=== PATIENT | female | born 1935 | race Caucasian/White ===

== ENCOUNTER → 2020-06-11 17:03 | Outpatient (CLI) | payer MEDICARE, SELFPAY ==
[2020-06-11 13:39] VITALS: BMI 27.1
== END ==
PROVIDERS: PCP Family Medicine; Referring Provider Obstetrics & Gynecology; Visit Provider Obstetrics & Gynecology
DX: N89.8 Other specified noninflammatory disorders of vagina (principal)
CPT/HCPCS: 87070; 87205

== ENCOUNTER → 2020-06-13 16:41 | Outpatient (CLI) | payer MEDICARE, SELFPAY ==
[2020-06-11 13:39] VITALS: BMI 27.1
[2020-06-19 13:10] LABS: HPV Reflexed? NOT INDICATED
== END ==
PROVIDERS: PCP Family Medicine; Referring Provider Obstetrics & Gynecology; Visit Provider Obstetrics & Gynecology
DX: Z12.4 Encounter for screening for malignant neoplasm of cervix (principal)
CPT/HCPCS: 88175; G0145

== ENCOUNTER → 2021-01-27 | Outpatient (CLI) | payer MEDICARE, SELFPAY ==
[2021-01-27 13:58] VITALS: BMI 27.8
== END | disposition home or self-care (01) ==
LOC: LABSPEC 16:58
PROVIDERS: PCP Family Medicine; Referring Provider Obstetrics & Gynecology; Visit Provider Obstetrics & Gynecology
DX: R35.0 Frequency of micturition (principal); N89.8 Other specified noninflammatory disorders of vagina
CPT/HCPCS: 87070; 87086; 87088; 87205

== ENCOUNTER → 2022-08-26 | Outpatient (CLI) | payer MEDICARE, SELFPAY | END | disposition home or self-care (01) | PROVIDERS: PCP Family Medicine; Visit Provider Registered Nurse | DX: N39.0 Urinary tract infection, site not specified (principal) | CPT/HCPCS: 87086; 87088 ==

== ENCOUNTER → 2022-12-22 | Outpatient (CLI) | payer MEDICARE, SELFPAY ==
--- NOTE | 2022-12-22 14:44 | CT_ITS ---
STUDY: CT Abdomen And Pelvis W/ Contrast Injection 12/22/2022 4:38 PM REASON FOR EXAM: Female, 87 years old. Left upper quadrant pain and loose stools in the morning since October. Surgeries: Cholecystectomy, Hysterectom pain LUQ PAIN Individualized dose optimization techniques were used for this CT. COMPARISON: 02.24.17. TECHNIQUE: CT Abdomen And Pelvis W/ Contrast Injection Oral and amp; IV Gastrografin and amp; 100mL Isovue-300 FINDINGS: There are atherosclerotic calcifications of visualized coronary arteries. The visualized portions of the heart are within normal limits. Normal liver. There are surgical clips in the gallbladder fossa consistent with a prior cholecystectomy. Normal spleen. Normal pancreas. There is dilation of the common bile duct. A common bile duct stone is not seen. The CBD diameter is 8 mm. Normal bilateral adrenal glands. There are hypodensities in the right kidney. These are consistent for cysts. No follow up required. There are hypodensities in the left kidney. These are consistent for cysts. No follow up required. Mild left hydronephroureter. An obstructing calcified stone is not identified. This would suggest passage of a stone or infectious process of the kidney. Normal visualized stomach. Normal small intestine. There are multiple colonic diverticula consistent with diverticulosis. The appendix is visualized and appears normal. There are calcifications of the abdominal aorta. This is consistent for atherosclerotic disease. There is NO abdominal aortic aneurysm. Vascular workup can be obtained based on clinical correlation. Normal inferior vena cava. Subcentimeter mesenteric lymph nodes. Normal urinary bladder. There is absence of the uterus consistent with a prior hysterectomy. Lumbar scoliosis. There is an umbilical hernia containing fat. There are diffuse degenerative changes of the visualized lumbar spine. CT/Abdomen/Pelvis WITH Contrast IMPRESSION: (NOT LISTED IN ORDER OF SIGNIFICANCE) Mild left hydronephroureter. An obstructing calcified stone is not identified. This would suggest passage of a stone or infectious process of the kidney. Other findings as above. Electronically Signed: Jonathan Finley MD at 16:43 EDT ,
[2022-12-22 16:31] LABS: CREATININE FINGERSTICK < 0.9 mg/dL (0.55-1.02); EGFR FINGERSTICK > 60.0000 mL/min (>60)
== END | disposition home or self-care (01) ==
PROVIDERS: PCP Family Medicine; Visit Provider Family Medicine
DX: R10.12 Left upper quadrant pain (principal)
CPT/HCPCS: 74177; Q9967

== ENCOUNTER → 2023-01-01 | Outpatient (CLI) | payer MEDICARE, SELFPAY ==
--- NOTE | 2023-01-01 12:33 | US_ITS ---
INDICATION: HYDROURETER LEFT EXAMINATION: US Kidney(s) complete (eg, kidneys and bladder) TECHNIQUE: Moe scale and color doppler images were obtained of the kidneys. COMPARISON: CT 12/22/2022. FINDINGS: RIGHT KIDNEY: Measures 9.6 cm in length.. There is mild hydronephrosis. No shadowing calculus, focal solid mass or perinephric collection is demonstrated. There is 1 simple anechoic 2 cm cyst. LEFT KIDNEY: Measures 9.3 cm in length.. There is no hydronephrosis. No shadowing calculus, focal solid mass or perinephric collection is demonstrated. There are 2 simple anechoic cysts measuring 3.2 and 1.3 cm, respectively. URINARY BLADDER: No acute abnormality. US/Kidney and Bladder IMPRESSION: Mild right hydronephrosis with no obstructing stone seen. This could be secondary to an occult or recently passed stone versus occult mass. No left sided hydronephrosis. (Upon review of recent CT, the hydronephrosis is on the right, not the left.) Electronically Signed: Lizandro Leong MD at 17:57 EDT ,
== END | disposition home or self-care (01) ==
PROVIDERS: PCP Family Medicine; Referring Provider Family Medicine; Visit Provider Family Medicine
DX: N13.4 Hydroureter (principal)
CPT/HCPCS: 76770

== ENCOUNTER 2023-04-27 07:15 | Day surgery (SDC) | payer MEDICARE, SELFPAY ==
[2023-04-27] VITALS (7 sets, daily range): BP systolic 99–136; BP diastolic 46–69; PULSE 64–79; RESP 14–16; TEMP 36.1–36.6; O2SAT 96–100; BMI 26.9
--- NOTE | 2023-04-27 07:43 | HP.PCM_ITS ---
History and Physical Date of Admission: 04/27/23 Allergies metronidazole [From Flagyl] Adverse Reaction (Unknown, Verified 04/19/23 14:02) dizziness Medications aspirin 81 mg tablet,delayed release (Adult Aspirin Regimen) 81 mg PO DAILY 01/27/21 [History Confirmed 04/19/23] atorvastatin 40 mg tablet (Lipitor) 40 mg PO DAILY 01/27/21 [History Confirmed 04/19/23] cholecalciferol (vitamin D3) 25 mcg (1,000 unit) capsule 25 mcg PO DAILY 01/27/21 [History Confirmed 04/19/23] mecobalamin (vitamin B12) 5,000 mcg disintegrating tablet mcg PO 01/27/21 [History Confirmed 04/19/23] melatonin 3 mg capsule 3 mg PO HS PRN 01/27/21 [History Confirmed 04/19/23] omeprazole 20 mg capsule,delayed release 20 mg PO BID 01/27/21 [History Confirmed 04/19/23] buspirone 10 mg tablet 7.5 mg PO BID 04/02/23 [History Confirmed 04/19/23] PFS Medical History (Updated 04/19/23 @ 15:36 by Pretty GARCIA PADeborahC) Anxiety Arthritis Fibrocystic breast Hyperlipidemia Surgical History Encounter for cholecystectomy H/O hysterectomy with oophorectomy Family History Mother Heart diseaseFather Myocardial infarction Social History Smoking Status: Never smoker alcohol intake: never substance use type: does not use caffeine: Yes what type of physical activity do you participate in: walking seatbelt use: always do you feel safe at home: Yes additional social history: Horace- both are retired HPI HPI Surgical H&P: Yes HPI: Patient is an 87 y/o F I am seeing for history of GERD and abdominal pain occurring in October. Patient notes she has been taking omeprazole 20 mg BID for over 20 years. Patient notes she has never had an upper to scope be evaluated for reflux disease. Patient notes in October she was extremely sick from the Norovirus. She notes since that time she has intermittent LLQ pain and she notes abdominal cramping and epigastric discomfort. She notes she also has to take the occasional TUMs for reflux disease approximately 2-3 times per week. Patient is also scheduled for a colonoscopy on 04/[address] Welch. Patient would like to have an upper scope completed at the same time. Patient's previous history per Dr. Welch: 87-year-old female being referred by Dr. Timo Barreto for surgical consultation regarding left lower quadrant abdominal pain. She does have chronic GERD symptoms as well. A written copy of my surgical consult recommendations will be returned to him. Laboratory of March 16, 2023 demonstrates a white blood cell count of 4.66 with a hemoglobin 12.3 hematocrit of 39.2 and a platelet count of 205,000. Glucose was 129 and BUN 12 with a creatinine of 0.93. Liver function tests were normal. Stool for analysis was remarkable Nacho virus Previously on December 22, 2022 because of left upper quadrant pain and loose stools the patient had a CT abdomen and pelvis with contrast. Report demonstrates evidence of previous cholecystectomy. Spleen pancreas normal. Common bile duct 8 mm but no stone identified. Hypodensities in the right kidney consistent with cysts. Mild right hydronephrosis and hydroureter. It is of note that the CT dictation suggests left hydroureter but this actually is a mixed type and misprint which was identified on the follow-up abdominal ultrasound as noted below an obstructing calcified stone not identified. Possible passage of a stone or infectious process of the kidney. Multiple colonic diverticulosis. Normal appendix. Atherosclerotic disease of the abdominal aorta without aneurysm. Small umbilical hernia. Subsequently on January 01, 2023 because of the left hydroureter the patient had an ultrasound. This showed suggested mild right hydronephrosis with no obstructing stone. No left-sided hydronephrosis at that time. Reviewing patient medications along her other medicines she has been on buspirone since July 27, 2022. Also on omeprazole 20 mg twice daily. Of note is that she is on magnesium oxide daily. Urinalysis of December 25, 2022 appears unremarkable. It appears that her repeat urinalysis on March 09, 2023 was also unremarkable. Patient describes the discomfort as a left flank Ketur type pain feeling warm and then uncomfortable ROS General General: No weight change, appetite, fatigue, colon cancer, breast cancer or weakness HEENT HEENT: No difficulty swallowing, eye injury, eye surgery, swollen glands or hoarseness Endo Endocrine: No thyroid disease, diabetes mellitus, thyroid cancer, Hair loss, heat intolerance or cold intolerance Skin Skin: No rash or changing moles Breast Breast: No left breast lump, right breast lump, nipple discharge, breast pain, abnormal mammogram, abnormal US or breast enlargement Musc Musculoskeletal: Yes arthritis; No back problems, rheumatoid arthritis, gout or joint pain Cardio Cardiovascular: No murmur, pacemaker, heart disease, atrial fibrillation, high blood pressure, heart attack, heart stent, palpitations, shortness of breat with exertion or chest pain Psych Psychiatric: Yes anxiety; No depression or hearing voices Resp Respiratory: No shortness of breath, No sleep apnea, No cough, No COPD, No asthma, No emphysema and No wheezing Gastro Gastrointestinal: No abdominal pain, No nausea or vomiting, No diarrhea, No constipation, No blood in stool, Yes acid reflux, Yes hemorrhoids, No ulcers, No gallbladder problem and No black,tarry stools Aleksey Hematologic: Yes blood thinners, No blood disorders, No bleeding, No anemia and No blood clots Neuro Neurologic: No system reviewed and no additional complaints, except as documented, No as per HPI, No abnormal gait, No abnormal hearing, No abnormal movements, No abnormal speech, No behavioral changes, No burning sensations, No confusion, No convulsions, No disequilibrium, No dizziness, No localized weakness, No frequent falls, No headache(s), No lack of coordination, No loss of vision, No memory loss, No numbness, No other visual disturbances, No radicular pain, No restless legs, No sensory deficit, No syncope, No tingling, No tremor(s), No weakness and No other Exam Const General: cooperative, healthy appearing, comfortable and no acute distress [facility] Head: normal to inspection Eyes General: appearance normal, both eyes and all related structures Neck Neck: normal visual inspection Neck mass: No Resp Effort & Inspection: normal respiratory effort Auscultation: clear to auscultation bilaterally Cardio Rate: regular rate Rhythm: regular rhythm GI Inspection: normal to inspection Palpation: soft Auscultation: normal bowel sounds Musc Cervical Spine: normal cervical lordosis Skin General: no rashes or lesions noted Neuro General: no focal motor deficits and CN's II-XI intact bilaterally Extrem General: normal to inspection Psych Appearance: grossly normal Affect: normal affect Assessment and Plan Assessment and Plan (1) Epigastric pain: Status: Acute Plan: Dr. Welch will plan to perform a combined EGD and colonoscopy with possible biopsies to further assess the patient's abdominal pain. Patient has also been on chronic PPI's, >20 years, without any previous upper scope. Procedure details, risks and benefits have been explained. Patient and her spouse have had the opportunity to ask and have questions answered. Patient verbally understands and agrees with the plan. (2) Left flank pain: Status: Acute Patient long-term PPIs complaining of epigastric pain and left flank pain. Plan to proceed with a combined esophagogastroduodenoscopy possible biopsy and colonoscopy with possible biopsy or polypectomy as indicated. We will proceed as noted. Noah Welch M.D., F.A.C.S.
[2023-04-27] MEDS: Lactated Ringers 1,000 ML 15 ML IV (07:46)
--- NOTE | 2023-04-27 08:15 | IMM_PTH ---
PATIENT: KWAME CROWLEY LOC: EN U#:[id number] AGE/SX: 87/F ROOM: RE04/27/[address]: Dr. Noah Welch MD : 1935 BED: DIS: 04/27/2023 SPEC #: [id number] RECD: 04/27/23 13:48 STATUS: REBA REQ #: [id number] CHER: 04/27/23 08:[address]: Noah Welch DEPT: IMMUNOHISTOCHEMISTRY RECD BY: Brunilda Brooke ENTERED: 04/27/23 13:50 SP TYPE: IMMUNO OTHR DR: Dr. Timo Barreto MD Tissues: A - Stomach, NOS Procedures: H Pylori (initial) KI-67 (add) P53 (add) PHYSICIAN & INSTITUTION [place] [id number] SPECIMEN INFORMATION: Tissue Source: A - Antrum Clinical Info: Epigastric pain, left flank pain Specimen Number: [id number] CPT code: 47815, 82559 x2 METHODOLOGY: Deparaffinized sections of prefer/formalin-fixed tissue or PAP/DQ stained slides are incubated with monoclonal/polyclonal antibodies/oligonucleotide probes. Localization is made via biotin free immunoperoxidase method. Appropriate controls are performed and reacted as expected. Results on target cell population are indicated in the following table: RESULTS: ANTIBODY / CLONE RESULT Block A H Pylori (polyclonal) negative P53 (DO-7) negative, wild type pattern Ki-67 (30-9) positive, low These tests were developed and their performance characteristics determined by [facility]. They may not have been cleared or approved by the U.S. Food and Drug Administration. The FDA has determined that such clearance or approval is not necessary. The above immunohistochemical/dualISH markers are ordered and reviewed by the Pathologist. INTERPRETATION: A. Antrum, biopsy: Negative for Helicobacter pylori organisms. No evidence of dysplasia. AM:arely 04/29/2023
--- NOTE | 2023-04-27 08:15 | EGD_PTH ---
PATIENT: KWAME CROWLEY LOC: EN U#:[id number] AGE/SX: 87/F ROOM: RE04/27/[address]: Dr. Noah Welch MD : 1935 BED: DIS: 04/27/2023 SPEC #: [id number] RECD: 04/27/23 11:48 STATUS: REBA PRADO #: [id number] CHER: 04/27/23 08:[address]: Noah Welch DEPT: SURGICAL PATHOLOGY RECD BY: Reyna Bardales ENTERED: 04/27/23 12:23 SP TYPE: EGD BIOPSY OT DR: Dr. Timo Barreto MD Tissues: A - Gastric mucous membrane B - Esophagus, NOS C - Esophagus, NOS Procedures: Surgery Specimen Level IV HEADER OPERATION: Colonoscopy, EGD with biopsies PRE-OP DIAGNOSIS: Epigastric pain, left flank pain TISSUE SUBMITTED: A - Antrum for H. pylori and path, B - Greater curvature polyp biopsy, C - Distal esophagus MICROSCOPIC DIAGNOSIS A. Gastric antrum, biopsy: Chronic gastritis. Focal intestinal metaplasia. No evidence of dysplasia. See comment. B. Greater curvature polyp, biopsy: Consistent with fundic gland polyp. C. Distal esophagus, biopsy: Fragments of gastric mucosa with no pathologic changer. AM:arely 04/28/2023 COMMENT A. The results of immunohistochemistry for Helicobacter pylori will be reported separately ([id number]). Immunohistochemistry ([id number]) for P53 and Ki-67 will be performed and results will be reported separately. MICROSCOPIC DESCRIPTION Slides are reviewed. GROSS DESCRIPTION A - Received in fixative is one container labeled with the patient's name and designated antrum biopsy. The specimen consists of two irregular fragments of light redd soft tissue that in aggregate measure 0.6 x 0.3 x 0.1 cm. The specimen is totally submitted in one cassette. B - Received in fixative is one container labeled with the patient's name and designated greater curvature polyp. The specimen consists of one irregular fragment of light redd soft tissue that measures 0.5 x 0.4 x 0.1 cm. The specimen is totally submitted in one cassette. C - Received in fixative is one container labeled with the patient's name and designated distal esophagus. The specimen consists of one irregular fragment of light redd soft tissue that measures 0.3 x 03 x 0.1 cm. The specimen is totally submitted in one cassette. / SJ:rg 04/27/2023 TC:3 CPT: 34588 x3
--- NOTE | 2023-04-27 09:12 | OP.EGD_ITS ---
Patient Name: Jennifer Weir Procedure Date: 04/27/2023 8:26 AM Date of : 1935 Age: 87 Procedure: Upper GI endoscopy Indications: Epigastric abdominal pain Providers: Noah Welch MD Referring MD: Timo Barreto Medicines: See the Anesthesia note for documentation of the administered medications Complications: No immediate complications. Procedure: Pre-Anesthesia Assessment: - Prior to the procedure, a History and Physical was performed, and patient medications and allergies were reviewed. The patient's tolerance of previous anesthesia was also reviewed. The risks and benefits of the procedure and the sedation options and risks were discussed with the patient. All questions were answered, and informed consent was obtained. Prior Anticoagulants: The patient has taken no previous anticoagulant or antiplatelet agents. ASA Grade Assessment: II - A patient with mild systemic disease. After reviewing the risks and benefits, the patient was deemed in satisfactory condition to undergo the procedure. After obtaining informed consent, the endoscope was passed under direct vision. Throughout the procedure, the patient's blood pressure, pulse, and oxygen saturations were monitored continuously. The Colonoscope was introduced through the mouth, and advanced to the second part of duodenum. The gastroscope was introduced through the and advanced to the. The upper GI endoscopy was accomplished without difficulty. The patient tolerated the procedure well. Scope In: 8:40:44 AM Scope Out: 8:49:14 AM Total Procedure Duration Time 0 hours 8 minutes 30 seconds Findings: The Z-line was variable and was found 35 cm from the incisors. Biopsies were taken with a cold forceps for histology. A small hiatal hernia was present. Diffuse mildly erythematous mucosa without bleeding was found in the gastric antrum. Biopsies were taken with a cold forceps for histology. Bilious fluid was found in the stomach. The examined duodenum was normal. A single 8 mm sessile polyp with no bleeding and stigmata of recent bleeding was found on the greater curvature of the stomach. The polyp was removed with a cold biopsy forceps. Resection and retrieval were complete. Impression: - Z-line variable, 35 cm from the incisors. Biopsied. - Small hiatal hernia. - Erythematous mucosa in the antrum. Biopsied. - Bilious gastric fluid. - Normal examined duodenum. - A single gastric polyp. Resected and retrieved. Patient may have a degree of bile reflux gastritis. Will await biopsy results. Sucralfate might be a reasonable addition to her medication list pending symptoms. Recommendation: - Telephone my office for pathology results in 1 week. - Continue present medications. Procedure Code(s): --- Professional --- 31084, Esophagogastroduodenoscopy, flexible, transoral; with biopsy, single or multiple Diagnosis Code(s): --- Professional --- K22.8, Other specified diseases of esophagus K44.9, Diaphragmatic hernia without obstruction or gangrene K31.89, Other diseases of stomach and duodenum K31.7, Polyp of stomach and duodenum R10.13, Epigastric pain CPT copyright 2017 [employer]. All rights reserved. The codes documented in this report are preliminary and upon rig hand review may be revised to meet current compliance requirements. Noah Welch MD 04/27/2023 9:11:35 AM This report has been signed electronically. Number of Addenda: 0 Note Initiated On: 04/27/2023 8:26 AM
--- NOTE | 2023-04-27 09:12 | OP.CCLET_ITS ---
04/27/2023 Timo Barreto Re : Upper GI endoscopy procedure for Jennifer Weir Dear Mary Lou This procedure was performed on Thursday, April 27, 2023. My impressions and recommendations are as follows: Impressions : - Z-line variable, 35 cm from the incisors. Biopsied. - Small hiatal hernia. - Erythematous mucosa in the antrum. Biopsied. - Bilious gastric fluid. - Normal examined duodenum. - A single gastric polyp. Resected and retrieved. Patient may have a degree of bile reflux gastritis. Will await biopsy results. Sucralfate might be a reasonable addition to her medication list pending symptoms. Recommendations : - Telephone my office for pathology results in 1 week. - Continue present medications. My findings are described in the full procedure note, which is enclosed. If I can be of further assistance, please feel free to contact me at Doctor phone number(s): Work: . Sincerely, Noah Welch MD 04/27/2023 9:11:35 AM This report has been signed electronically.
--- NOTE | 2023-04-27 09:17 | OP.COLON_ITS ---
Patient Name: Jennifer Weir Procedure Date: 04/27/2023 8:51 AM Date of : 1935 Age: 87 Procedure: Colonoscopy Indications: Abdominal pain in the left upper quadrant Providers: Noah Welch MD Referring MD: Timo Barreto Medicines: See the Anesthesia note for documentation of the administered medications Patient Profile: Last Colonoscopy: 5 years ago. Complications: No immediate complications. Procedure: Pre-Anesthesia Assessment: - Prior to the procedure, a History and Physical was performed, and patient medications and allergies were reviewed. The patient's tolerance of previous anesthesia was also reviewed. The risks and benefits of the procedure and the sedation options and risks were discussed with the patient. All questions were answered, and informed consent was obtained. Prior Anticoagulants: The patient has taken no previous anticoagulant or antiplatelet agents. ASA Grade Assessment: II - A patient with mild systemic disease. After reviewing the risks and benefits, the patient was deemed in satisfactory condition to undergo the procedure. After I obtained informed consent, the scope was passed under direct vision. Throughout the procedure, the patient's blood pressure, pulse, and oxygen saturations were monitored continuously. The Colonoscope was introduced through the anus and advanced to the cecum, identified by appendiceal orifice and ileocecal valve. The colonoscopy was performed without difficulty. The patient tolerated the procedure well. The quality of the bowel preparation was good. The ileocecal valve and the appendiceal orifice were photographed. Scope In: 8:53:22 AM Scope Withdrawal Time 0 hours 6 minutes 27 seconds Scope Out: 9:05:15 AM Total Procedure Duration Time 0 hours 11 minutes 53 seconds Findings: Hemorrhoids were found on perianal exam. Multiple diverticula were found in the sigmoid colon and descending colon. The exam was otherwise without abnormality. Impression: - Hemorrhoids found on perianal exam. - Diverticulosis in the sigmoid colon and in the descending colon. - The examination was otherwise normal. - No specimens collected. Recommendation: - Discharge patient to home. - Resume previous diet. - Continue present medications. - Repeat colonoscopy is not recommended due to current age (66 years or older) for screening purposes. No findings that would correlate with the patient's concerns about left upper quadrant pain. Procedure Code(s): --- Professional --- 40647, Colonoscopy, flexible; diagnostic, including collection of specimen(s) by brushing or washing, when performed (separate procedure) Diagnosis Code(s): --- Professional --- K64.9, Unspecified hemorrhoids R10.12, Left upper quadrant pain K57.30, Diverticulosis of large intestine without perforation or abscess without bleeding CPT copyright 2017 [employer]. All rights reserved. The codes documented in this report are preliminary and upon bill poster installer review may be revised to meet current compliance requirements. Noah Welch MD 04/27/2023 9:17:36 AM This report has been signed electronically. Number of Addenda: 0 Note Initiated On: 04/27/2023 8:51 AM
--- NOTE | 2023-04-27 09:18 | OP.CCLET_ITS ---
04/27/2023 Timo Barreto Re : Colonoscopy procedure for Jennifer Weir Dear Mary Lou This procedure was performed on Thursday, April 27, 2023. My impressions and recommendations are as follows: Impressions : - Hemorrhoids found on perianal exam. - Diverticulosis in the sigmoid colon and in the descending colon. - The examination was otherwise normal. - No specimens collected. Recommendations : - Discharge patient to home. - Resume previous diet. - Continue present medications. - Repeat colonoscopy is not recommended due to current age (66 years or older) for screening purposes. No findings that would correlate with the patient's concerns about left upper quadrant pain. My findings are described in the full procedure note, which is enclosed. If I can be of further assistance, please feel free to contact me at Doctor phone number(s): Work: . Sincerely, Noah Welch MD 04/27/2023 9:17:36 AM This report has been signed electronically.
--- NOTE | 2023-04-27 09:20 | SUR.PHASEI ---
dr mora at bedside
== END 2023-04-27 09:54 | disposition home or self-care (01) ==
LOC: EN 07:16 → AC 07:18
PROVIDERS: PCP Family Medicine; Referring Provider Family Medicine; Visit Provider Surgery
PROC: 0DJD8ZZ Inspection of Lower Intestinal Tract, Via Natural or Artificial Opening Endoscopic (ICD-10-PCS; CPT 45378; principal; 2023-04-27 08:10)
DX: K31.A11 Gastric intestinal metaplasia without dysplasia, involving the antrum (principal); K44.9 Diaphragmatic hernia without obstruction or gangrene; K31.7 Polyp of stomach and duodenum; K57.30 Diverticulosis of large intestine without perforation or abscess without bleeding; K64.9 Unspecified hemorrhoids; E78.00 Pure hypercholesterolemia, unspecified; K21.9 Gastro-esophageal reflux disease without esophagitis; Z90.49 Acquired absence of other specified parts of digestive tract; K29.50 Unspecified chronic gastritis without bleeding; Z79.82 Long term (current) use of aspirin; Z79.899 Other long term (current) drug therapy; Z87.19 Personal history of other diseases of the digestive system
CPT/HCPCS: 45378; 43239; 88305; 88341; 88342; J7120; J2405

== ENCOUNTER 2023-06-27 17:47 | Emergency (ER) | payer MEDICARE, SELFPAY ==
[2023-06-27 17:48] VITALS: BP 149/83; PULSE 72; RESP 18; TEMP 36.6; O2SAT 97
--- NOTE | 2023-06-27 18:42 | ED.VIS.LOWEX ---
HPI History of Present Illness Chief Complaint: Lower Extremity Injury Narrative Narrative: 87-year-old female past medical history of partial right knee replacement remotely by Dr. Ricardo, presents with injury to her right knee that she sustained prior to arrival. She states that she was weeding on an incline, and tugging at a weed that would not come out of the ground. She tells so hard that when the weed came out, she tumbled down the hill. She did not necessarily strike her head or lose consciousness but has pain in her right knee and bruising noted. She was able to ambulate. She presents to the emergency department solely for an x-ray to make sure that she does not have a fracture of her right knee. She denies other injury. [facility] Medical History Anxiety Arthritis Fibrocystic breast (~1992) GERD (gastroesophageal reflux disease) High cholesterol History of diverticulitis History of hiatal hernia Hyperlipidemia Non-smoker Wears dentures Wears glasses Home Medications aspirin 81 mg tablet,delayed release (Adult Aspirin Regimen) 81 mg PO DAILY 01/27/21 [History Last Taken Unknown] atorvastatin 40 mg tablet (Lipitor) 40 mg PO DAILY 01/27/21 [History Last Taken Unknown] cholecalciferol (vitamin D3) 25 mcg (1,000 unit) capsule 25 mcg PO DAILY 01/27/21 [History Last Taken Unknown] mecobalamin (vitamin B12) 5,000 mcg disintegrating tablet 5,000 mcg PO DAILY 01/27/21 [History Last Taken Unknown] melatonin 3 mg capsule 3 mg PO HS PRN sleep 01/27/21 [History Last Taken Unknown] omeprazole 20 mg capsule,delayed release 20 mg PO BID 01/27/21 [History Last Taken Unknown] buspirone 10 mg tablet 7.5 mg PO BID 04/02/23 [History Last Taken Unknown] Allergy/AdvReac Type Severity Reaction Status Date / Time metronidazole [From Flagyl] AdvReac Unknown dizziness Verified 04/27/23 07:43 Family History Mother Heart disease Father Myocardial infarction Surgical History Encounter for cholecystectomy H/O hysterectomy with oophorectomy Social History Smoking Status: Never smoker alcohol intake: never substance use type: does not use caffeine: Yes what type of physical activity do you participate in: walking seatbelt use: always do you feel safe at home: Yes additional social history: Horace- both are retired ROS ROS ED ROS Narrative Constitutional: No fever, no chills. HEENT: No sore throat. No neck pain. No loss of vision. No rhinorrhea. Cardiovascular: No chest pain. No palpitations. No pedal edema. Respiratory: No cough, no shortness of breath. Abdominal: No abdominal pain. No nausea. No vomiting. Genitourinary: No dysuria. No hematuria. Musculoskeletal: No myalgias. Knee pain, swelling, and bruising from tumbling down a hill. Neurologic: No headaches. No dizziness. No lightheadedness. Skin: No rash. Pain noted to right knee. Psychiatric: No depression. No anxiety. EXAM Physical Exam Narrative Exam Narrative: Afebrile. Vital signs noted. HEENT: Normocephalic. Atraumatic. PERRL, EOMI. Neck soft and supple. No point tenderness or step off. Cardiovascular: Regular rate and rhythm. No murmurs, rubs, or gallops appreciated. Respiratory: No tachypnea. Lungs clear to auscultation bilaterally. Gastrointestinal: Abdomen soft, nontender, with normoactive bowel sounds. No rebound or guarding. Neurological: Awake. Alert. Nonfocal, nonlateralizing. Skin: No rash. Normal color. No pallor. Musculoskeletal: No pedal edema. Full range of motion extremities. Section of the right knee does show well-healed scar consistent with previous knee replacement surgery. She is able to flex and extend. There is mild swelling and diffuse tenderness, with slight ecchymosis noted. She has a palpable dorsalis pedis pulse on the right. Pelvis is stable. No pain with logrolling of femur. Const Vital Signs: 06/27/23 17:48 Temperature 97.8 F Temperature Source Temporal Pulse Rate 72 Respiratory Rate 18 Blood Pressure 149/83 H Blood Pressure Mean 105 Pulse Ox 97 Oxygen Delivery Method Room Air MDM MDM MDM Narrative Medical decision making narrative: Concern would be for periprosthetic fracture, versus knee sprain and contusion. She already took Tylenol prior to arrival and declined any further analgesics. X-rays were obtained of the right knee and 4 views and interpreted by myself independently. I see no evidence of acute fracture, hardware appears intact. At this point in time, after reviewing the radiology report which shows anterior soft tissue swelling which may reflect hematoma or bursitis, no evidence of hardware failure or fracture, she will be placed in an Alejandro wrap and continue [id number] analgesics along with ice and elevation of her extremity. She was referred to orthopedics for follow-up as needed. She states she has a follow-up appointment with her primary care physician in approximately 1 week. I feel she be discharged safely home with follow-up and that she does not require observation or admission at this time. Disposition is discharged home in stable condition. Radiography Diagnostic Testing: Clinical Impression(s) from Imaging Studies Knee X-Ray 06/27/23 19:00 IMPRESSION: Significant anterior soft tissue swelling. Findings may reflect hematoma and/or bursitis. No definitive suprapatellar effusion. Hemiarthroplasty in near anatomic alignment without obvious hardware failure or fracture. No baseline film for comparison. Electronically Signed: Long Ferrer MD at 19:26 EDT , Discharge Plan Triage Chief Complaint: Lower Extremity Injury ED Provider: Lawrence Reese Dx/Rx/DC Orders Clinical Impression: Knee sprain, Contusion of knee, right Instructions: ED Contusion, Lower Extremity, ED Knee Sprain Prescriptions: No Action omeprazole 20 mg capsule,delayed release(DR/EC) 20 mg PO BID atorvastatin [Lipitor] 40 mg tablet 40 mg PO DAILY aspirin [Adult Aspirin Regimen] 81 mg tablet,delayed release (DR/EC) 81 mg PO DAILY cholecalciferol (vitamin D3) 25 mcg (1,000 unit) capsule 25 mcg PO DAILY mecobalamin (vitamin B12) 5,000 mcg tablet,disintegrating 5,000 mcg PO DAILY melatonin 3 mg capsule 3 mg PO HS PRN (Reason: sleep) buspirone 10 mg tablet 7.5 mg PO BID Primary Care Provider: Timo Barreto Referrals: Timo Barreto MD [Primary Care Provider] - 1 Week Julius Leon MD [Med Staff - Active Staff] - As Needed Activity Restrictions/Additional Instructions: Apply ice to the affected area, right knee, 10 to 15 minutes a few times a day. You may wear your Alejandro wrap for support, but do not wrap too tightly. [id number] medications as needed. Follow-up with your primary care provider. Disposition Disposition: Home, Self Care
--- NOTE | 2023-06-27 19:00 | RAD_ITS ---
INDICATION: trauma EXAMINATION/TECHNIQUE: X-RAY - RIGHT XR Knee Complete 4 Views or More 4 VIEWS COMPARISON: None. FINDINGS: This patient has soft tissue swelling anterior to patella and patellar tendon. Mild patellofemoral osteophyte formation is appreciated. Corticated densities near the quadriceps insertion are presumably chronic. Right medial compartment hemiarthroplasty. Lateral joint space overall appears preserved. There is chondrocalcinosis. Corticated density projects over the posterior lateral joint although this could reflect fabella. No significant patellofemoral facet joint narrowing is appreciated. RAD/Knee 4 or More Views IMPRESSION: Significant anterior soft tissue swelling. Findings may reflect hematoma and/or bursitis. No definitive suprapatellar effusion. Hemiarthroplasty in near anatomic alignment without obvious hardware failure or fracture. No baseline film for comparison. Electronically Signed: Long Ferrer MD at 19:26 EDT ,
[2023-06-27 19:47] VITALS: BP 176/82; PULSE 62; RESP 18; O2SAT 97
[2023-06-27 19:59] VITALS: BP 178/81
[2023-06-27 20:03] VITALS: BP 171/79; RESP 18
== END 2023-06-27 20:03 | disposition home or self-care (01) ==
PROVIDERS: Emergency Provider Emergency Medicine; PCP Family Medicine; Visit Provider Emergency Medicine
DX: S83.91XA Sprain of unspecified site of right knee, initial encounter (principal); W17.81XA Fall down embankment (hill), initial encounter; Y93.H2 Activity, gardening and landscaping; E78.00 Pure hypercholesterolemia, unspecified; K21.9 Gastro-esophageal reflux disease without esophagitis; Z79.82 Long term (current) use of aspirin; Z96.651 Presence of right artificial knee joint
CPT/HCPCS: 73564; 99282

== ENCOUNTER → 2023-12-16 | Outpatient (CLI) | payer MEDICARE, SELFPAY ==
--- OUTSIDE RECORDS SUMMARY | 2023-12-16 20:25 | XMS RPT_ITS | CCD ---
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 Status: She is alert and oriented to person, place, and time. Psychiatric: Mood and Affect: Mood normal. Behavior: Behavior normal. Thought Content: Thought content normal. Judgment: Judgment normal. Assessment/Plan Problem List Items Addressed This Visit Dysuria Relevant Orders POCT UA Automated manually resulted (Completed) Urine Culture Yeast infection - Primary Relevant Medications fluconazole (Diflucan) 150 mg tablet TAKE DIFLUCAN. WILL SEND URINE FOR CULTURE WE DISCUSSED MOST COMMON SIDE EFFECTS OF PRESCRIBED MEDICATIONS. INDICATIONS, RISK, COMPLICATIONS, AND ALTERNATIVES OF MEDICATION/THERAPEUTICS WERE EXPLAINED AND DISCUSSED. PLEASE MONITOR CLOSELY FOR ANY UNTOWARD SIDE EFFECTS OR COMPLICATIONS OF MEDICATIONS. PATIENT IS STRONGLY ADVISED TO BE COMPLIANT WITH RECOMMENDATIONS. QUESTIONS AND CONCERNS WERE ADDRESSED. INSTRUCTED TO CALL, RETURN SOONER, OR GO TO THE ER, IF SYMPTOMS PERSIST OR WORSEN. THEY VOICED UNDERSTANDING AND DENIES FURTHER QUESTIONS AT THIS TIME. TIME CODE 1. PREPARATION FOR PATIENT'S VISIT (REVIEWING CHART, CURRENT MEDICAL RECORDS, OUTSIDE HEALTH PROVIDER RECORDS, PREVIOUS HISTORY, EXAM, TEST, PROCEDURE, AND MEDICATIONS) 2. FACE TO FACE ENCOUNTER OBTAINING HISTORY FROM THE PATIENT/FAMILY/CAREGIVERS; PERFORMING EVALUATION AND EXAMINATION; ORDERING TESTS OR PROCEDURES; REFERRING AND COMMUNICATING WITH OTHER HEALTHCARE PROVIDERS; COUNSELING AND EDUCATION OF THE PATIENT/FAMILY/CAREGIVERS; INDEPENDENTLY INTERPRETING RESULTS (TESTS, LABS, PROCEDURES, IMAGING) AND COMMUNICATING AND EXPLAINING RESULTS TO THE PATIENT/FAMILY/CAREGIVERS 3. COORDINATION OF CARE; PREPARING AND PRINTING DISCHARGE INSTRUCTIONS AND ANY EDUCATIONAL MATERIAL FOR THE PATIENT/FAMILY/CAREGIVERS. DOCUMENTING CLINICAL INFORMATION IN THE ELECTRONIC MEDICAL RECORD 4. REVIEWING OARRS NEEDED MDM 1) COMPLEXITY: MORE THAN 1 STABLE CHRONIC CONDITION ADDRESSED OR 1 ACUTE ILLNESS ADDRESSED 2)DATA: TESTS INTERPRETED AND OR ORDERED, TOOK INDEPENDENT HISTORY OR RECORDS REVIEWED 3)RISK: MODERATE RISK DUE TO NATURE OF MEDICAL CONDITIONS/COMORBIDITY OR MEDICATIONS ORDERED OR SURGICAL OR PROCEDURE REFERRAL Follow up as before documented in this encounter [facility] Work Phone: 09-14-2023 History of Present illness Narrative Subjective Patient ID: Jennifer Weir is a 88 y.o. female who presents for Epistaxis (Nose Bleed) (EVERY MORNING X 4 WEEKS AGO ). HPI: Presents today for C/O SORENESS TO NOSE X 4 WEEKS modifying factors consists of SHE STOPPED HER ALLERGY MEDS associated symptoms consist of SHE WAKES UP IN THE MORNING AND BLOWS HER NOSE. SHE HAS BEEN HAVING BLOOD ON THE TISSUE. 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 CA[facility]LIN [facility]LECILLO [facility] APPT ON 10/05/23. ECHO DONE TODAY Visit Vitals BP 138/82 (BP Location: Right arm, Patient Position: Sitting) Pulse 74 Ht 1.575 m (5' 2 ) Wt 68 kg (150 lb) LMP (LMP Unknown) SpO2 95% BMI 27.44 kg/m OB Status Postmenopausal Smoking Status Never BSA 1.72 m Review of Systems Constitutional: Negative for chills, fatigue, fever and unexpected weight change. HENT: Negative for congestion, ear pain, sore throat and trouble swallowing. Eyes: Negative for photophobia, pain, redness and visual disturbance. Respiratory: Negative for apnea, cough, choking, chest tightness, shortness of breath and wheezing. Cardiovascular: Negative for chest pain, palpitations and leg swelling. Gastrointestinal: Negative for abdominal distention, abdominal pain, blood in stool, constipation, diarrhea, nausea and vomiting. Genitourinary: Negative for difficulty urinating, dysuria, flank pain, frequency, hematuria and urgency. Musculoskeletal: Negative for arthralgias, back pain, gait problem, joint swelling, myalgias and neck pain. Skin: Negative for rash and wound. Neurological: Negative for dizziness, seizures, syncope, facial asymmetry, speech difficulty, weakness, numbness and headaches. Psychiatric/Behavioral: Negative for confusion, sleep disturbance and suicidal ideas. The patient is not nervous/anxious. Objective Physical Exam Constitutional: Appearance: Normal appearance. She is normal weight. HENT: Head: Normocephalic. Nose: Comments: B/L TURBINATES INFLAMED. REDNESS NOTED Eyes: Extraocular Movements: Extraocular movements intact. Conjunctiva/sclera: Conjunctivae normal. Pupils: Pupils are equal, round, and reactive to light. Cardiovascular: Rate and Rhythm: Normal rate and regular rhythm. Pulses: Normal pulses. Heart sounds: Normal heart sounds. Pulmonary: Effort: Pulmonary effort is normal. Breath sounds: Normal breath sounds. Musculoskeletal: General: Normal range of motion. Cervical back: Normal range of motion. Skin: General: Skin is warm and dry. Neurological: General: No focal deficit present. Mental Status: She is alert and oriented to person, place, and time. Psychiatric: Mood and Affect: Mood normal. Behavior: Behavior normal. Thought Content: Thought content normal. Judgment: Judgment normal. Assessment/Plan Problem List Items Addressed This Visit Nose irritation - Primary Relevant Medications mupirocin (Bactroban) 2 % ointment WE DISCUSSED MOST COMMON SIDE EFFECTS OF PRESCRIBED MEDICATIONS. INDICATIONS, RISK, COMPLICATIONS, AND ALTERNATIVES OF MEDICATION/THERAPEUTICS WERE EXPLAINED AND DISCUSSED. PLEASE MONITOR CLOSELY FOR ANY UNTOWARD SIDE EFFECTS OR COMPLICATIONS OF MEDICATIONS. PATIENT IS STRONGLY ADVISED TO BE COMPLIANT WITH RECOMMENDATIONS. QUESTIONS AND CONCERNS WERE ADDRESSED. INSTRUCTED TO CALL, RETURN SOONER, OR GO TO THE ER, IF SYMPTOMS PERSIST OR WORSEN. THEY VOICED UNDERSTANDING AND DENIES FURTHER QUESTIONS AT THIS TIME. TIME CODE 1. PREPARATION FOR PATIENT'S VISIT (REVIEWING CHART, CURRENT MEDICAL RECORDS, OUTSIDE HEALTH PROVIDER RECORDS, PREVIOUS HISTORY, EXAM, TEST, PROCEDURE, AND MEDICATIONS) 2. FACE TO FACE ENCOUNTER OBTAINING HISTORY FROM THE PATIENT/FAMILY/CAREGIVERS; PERFORMING EVALUATION AND EXAMINATION; ORDERING TESTS OR PROCEDURES; REFERRING AND COMMUNICATING WITH OTHER HEALTHCARE PROVIDERS; COUNSELING AND EDUCATION OF THE PATIENT/FAMILY/CAREGIVERS; INDEPENDENTLY INTERPRETING RESULTS (TESTS, LABS, PROCEDURES, IMAGING) AND COMMUNICATING AND EXPLAINING RESULTS TO THE PATIENT/FAMILY/CAREGIVERS 3. COORDINATION OF CARE; PREPARING AND PRINTING DISCHARGE INSTRUCTIONS AND ANY EDUCATIONAL MATERIAL FOR THE PATIENT/FAMILY/CAREGIVERS. DOCUMENTING CLINICAL INFORMATION IN THE ELECTRONIC MEDICAL RECORD 4. REVIEWING OARRS NEEDED MDM 1) COMPLEXITY: MORE THAN 1 STABLE CHRONIC CONDITION ADDRESSED OR 1 ACUTE ILLNESS ADDRESSED 2)DATA: TESTS INTERPRETED AND OR ORDERED, TOOK INDEPENDENT HISTORY OR RECORDS REVIEWED 3)RISK: MODERATE RISK DUE TO NATURE OF MEDICAL CONDITIONS/COMORBIDITY OR MEDICATIONS ORDERED OR SURGICAL OR PROCEDURE REFERRAL Follow up as before documented in this encounter [facility] Work Phone: 09-06-2023 Emergency department Note Associated Order(s): ECG 12 lead HPI Chief Complaint Patient presents with Hypertension Pt states she is suppose to go to get a stress test and feel she was anxious and not feeling right. Limitations to History: None HPI: 88-year-old female presents with concern for dizziness and anxiety. States that approximately 6 to 8 hours ago she began feeling dizzy and like her blood pressure was increasing. States that she felt she was very anxious because she was told she has to have a stress test today which has not yet been scheduled. Denies any chest pain, shortness of breath, headache, vision change, neck pain, nausea, vomiting, diaphoresis, abdominal pain, urinary symptoms. Additional History Obtained from: Family at the bedside. Physical Exam: VS: As documented in the triage note and EMR flowsheet from this visit were reviewed. Appearance: Alert. cooperative, in no acute distress. Skin: Intact, dry skin, no lesions, rash, petechiae or purpura. Eyes: PERRLA, EOMs intact, Conjunctiva pink with no redness or exudates. HENT: Normocephalic, atraumatic. Nares patent. No intraoral lesions. Neck: Supple, without meningismus. Trachea at midline. No lymphadenopathy. Pulmonary: Clear bilaterally with good chest wall excursion. No rales, rhonchi or wheezing. No accessory muscle use or stridor. Cardiac: Regular rate and rhythm, no rubs, murmurs, or gallops. No JVD, Carotids without bruits. Abdomen: Abdomen is soft, nontender, and nondistended. No palpable organomegaly. No rebound or guarding. No CVA tenderness. Nonsurgical abdomen Genitourinary: Exam deferred. Musculoskeletal: Full range of motion. Pulses full and equal. No cyanosis, clubbing, or edema. Neurological: Cranial nerves are grossly intact, grossly normal sensation, no weakness, no focal findings identified. Psychiatric: Appropriate mood and affect. No data recorded Patient History History reviewed. No pertinent past medical history. Past Surgical History: Procedure Laterality Date BREAST LUMPECTOMY BENIGN CYST CATARACT EXTRACTION CHOLECYSTECTOMY COLONOSCOPY HYSTERECTOMY TOTAL KNEE ARTHROPLASTY Family History Problem Relation Name Age of Onset Stroke Mother Cancer Father COPD Brother Heart disease Other Social History Tobacco Use Smoking status: Never Passive exposure: Never Smokeless tobacco: Never Vaping Use Vaping Use: Never used Substance Use Topics Alcohol use: Not Currently Drug use: Never Physical Exam ED Triage Vitals [09/06/23 0224] Temp Heart Rate Resp BP 36.8 C (98.2 F) 73 15 (!) 183/84 SpO2 Temp src Heart Rate Source Patient Position 97 % -- -- -- BP Location FiO2 (%) -- -- Physical Exam ED Course & MDM Diagnoses as of 09/07/23 0021 Dizziness Hypokalemia Medical Decision Making Labs Reviewed COMPREHENSIVE METABOLIC PANEL - Abnormal Glucose 98 Sodium 139 Potassium 3.7 Chloride 104 Bicarbonate 25 Anion Gap 14 Urea Nitrogen 17 Creatinine 1.06 (*) eGFR 51 (*) Calcium 9.2 Albumin 4.0 Alkaline Phosphatase 63 Total Protein 6.4 AST 16 Bilirubin, Total 0.4 ALT 9 MAGNESIUM - Abnormal Magnesium 1.46 (*) SERIAL TROPONIN-INITIAL - Normal Troponin I, High Sensitivity 7 Narrative: Less than 99th percentile of normal range cutoff- Female and children under 18 years old <14 ng/L; Male <21 ng/L: Negative Repeat testing should be performed if clinically indicated. Female and children under 18 years old 14-50 ng/L; Male 21-50 ng/L: Consistent with possible cardiac damage and possible increased clinical risk. Serial measurements may help to assess extent of myocardial damage. >50 ng/L: Consistent with cardiac damage, increased clinical risk and myocardial infarction. Serial measurements may help assess extent of myocardial damage. NOTE: Children less than 1 year old may have higher baseline troponin levels and results should be interpreted in conjunction with the overall clinical context. NOTE: Troponin I testing is performed using a different testing methodology at [facility] than at other [facility]. Direct result comparisons should only be made within the same method. CBC WITH AUTO DIFFERENTIAL WBC 7.7 nRBC 0.0 RBC 4.06 Hemoglobin 12.0 Hematocrit 36.3 MCV 89 MCH 29.6 MCHC 33.1 RDW 12.8 Platelets 298 Neutrophils % 46.3 Immature Granulocytes %, Automated 0.7 Lymphocytes % 38.8 Monocytes % 10.1 Eosinophils % 3.3 Basophils % 0.8 Neutrophils Absolute 3.55 Immature Granulocytes Absolute, Au* 0.05 Lymphocytes Absolute 2.97 Monocytes Absolute 0.77 Eosinophils Absolute 0.25 Basophils Absolute 0.06 TROPONIN SERIES- (INITIAL, 1 HR) Narrative: The following orders were created for panel order Troponin I Series, High Sensitivity (0, 1 HR). Procedure Abnormality Status --------- ------ Troponin I, High Sensiti...[[id number]] Normal Final result Troponin, High Sensitivi...[[id number]] Please view results for these tests on the individual orders. SERIAL TROPONIN, 1 HOUR XR chest 1 view Final Result No acute pulmonary abnormality. Signed by Adarsh Ruff MD Medical Decision Making: Patient appears well and nontoxic. No focal deficit. EKG nonischemic. High sensitive troponin negative. Hypokalemia. Replaced orally. Chest x-ray clear. Advised on keeping her appointment for her stress testing and asked to return for new or worsening symptoms. Stable at time of discharge. Differential Diagnoses Considered: Anxiety, electrolyte abnormality, pneumonia, ACS Independent Interpretation of Studies: I independently interpreted: Chest x-ray shows no evidence of pneumonia or pneumothorax. Escalation of Care: Appropriate for discharge and follow-up with primary care. Procedure ECG 12 lead Performed by: Mundo Fuentes DO Authorized by: Mundo Fuentes DO ECG interpreted by ED Physician in the absence of a keno writer/runner: yes Comments: EKG interpreted by Dr. Mundo Fuentes: Normal sinus rhythm at 62 bpm. MO interval 180 ms. QTc of [address] changes. Mundo Fuentes DO 09/07/23 0021 documented in this encounter [facility] Work Phone: 09-06-2023 Physician Emergency department Note Associated Order(s): ECG 12 lead HPI Chief Complaint Patient presents with Hypertension Pt states she is suppose to go to get a stress test and feel she was anxious and not feeling right. Limitations to History: None HPI: 88-year-old female presents with concern for dizziness and anxiety. States that approximately 6 to 8 hours ago she began feeling dizzy and like her blood pressure was increasing. States that she felt she was very anxious because she was told she has to have a stress test today which has not yet been scheduled. Denies any chest pain, shortness of breath, headache, vision change, neck pain, nausea, vomiting, diaphoresis, abdominal pain, urinary symptoms. Additional History Obtained from: Family at the bedside. Physical Exam: VS: As documented in the triage note and EMR flowsheet from this visit were reviewed. Appearance: Alert. cooperative, in no acute distress. Skin: Intact, dry skin, no lesions, rash, petechiae or purpura. Eyes: PERRLA, EOMs intact, Conjunctiva pink with no redness or exudates. HENT: Normocephalic, atraumatic. Nares patent. No intraoral lesions. Neck: Supple, without meningismus. Trachea at midline. No lymphadenopathy. Pulmonary: Clear bilaterally with good chest wall excursion. No rales, rhonchi or wheezing. No accessory muscle use or stridor. Cardiac: Regular rate and rhythm, no rubs, murmurs, or gallops. No JVD, Carotids without bruits. Abdomen: Abdomen is soft, nontender, and nondistended. No palpable organomegaly. No rebound or guarding. No CVA tenderness. Nonsurgical abdomen Genitourinary: Exam deferred. Musculoskeletal: Full range of motion. Pulses full and equal. No cyanosis, clubbing, or edema. Neurological: Cranial nerves are grossly intact, grossly normal sensation, no weakness, no focal findings identified. Psychiatric: Appropriate mood and affect. No data recorded Patient History History reviewed. No pertinent past medical history. Past Surgical History: Procedure Laterality Date BREAST LUMPECTOMY BENIGN CYST CATARACT EXTRACTION CHOLECYSTECTOMY COLONOSCOPY HYSTERECTOMY TOTAL KNEE ARTHROPLASTY Family History Problem Relation Name Age of Onset Stroke Mother Cancer Father COPD Brother Heart disease Other Social History Tobacco Use Smoking status: Never Passive exposure: Never Smokeless tobacco: Never Vaping Use Vaping Use: Never used Substance Use Topics Alcohol use: Not Currently Drug use: Never Physical Exam ED Triage Vitals [09/06/23 0224] Temp Heart Rate Resp BP 36.8 C (98.2 F) 73 15 (!) 183/84 SpO2 Temp src Heart Rate Source Patient Position 97 % -- -- -- BP Location FiO2 (%) -- -- Physical Exam ED Course & MDM Diagnoses as of 09/07/23 0021 Dizziness Hypokalemia Medical Decision Making Labs Reviewed COMPREHENSIVE METABOLIC PANEL - Abnormal Glucose 98 Sodium 139 Potassium 3.7 Chloride 104 Bicarbonate 25 Anion Gap 14 Urea Nitrogen 17 Creatinine 1.06 (*) eGFR 51 (*) Calcium 9.2 Albumin 4.0 Alkaline Phosphatase 63 Total Protein 6.4 AST 16 Bilirubin, Total 0.4 ALT 9 MAGNESIUM - Abnormal Magnesium 1.46 (*) SERIAL TROPONIN-INITIAL - Normal Troponin I, High Sensitivity 7 Narrative: Less than 99th percentile of normal range cutoff- Female and children under 18 years old <14 ng/L; Male <21 ng/L: Negative Repeat testing should be performed if clinically indicated. Female and children under 18 years old 14-50 ng/L; Male 21-50 ng/L: Consistent with possible cardiac damage and possible increased clinical risk. Serial measurements may help to assess extent of myocardial damage. >50 ng/L: Consistent with cardiac damage, increased clinical risk and myocardial infarction. Serial measurements may help assess extent of myocardial damage. NOTE: Children less than 1 year old may have higher baseline troponin levels and results should be interpreted in conjunction with the overall clinical context. NOTE: Troponin I testing is performed using a different testing methodology at [facility] than at other [facility]. Direct result comparisons should only be made within the same method. CBC WITH AUTO DIFFERENTIAL WBC 7.7 nRBC 0.0 RBC 4.06 Hemoglobin 12.0 Hematocrit 36.3 MCV 89 MCH 29.6 MCHC 33.1 RDW 12.8 Platelets 298 Neutrophils % 46.3 Immature Granulocytes %, Automated 0.7 Lymphocytes % 38.8 Monocytes % 10.1 Eosinophils % 3.3 Basophils % 0.8 Neutrophils Absolute 3.55 Immature Granulocytes Absolute, Au* 0.05 Lymphocytes Absolute 2.97 Monocytes Absolute 0.77 Eosinophils Absolute 0.25 Basophils Absolute 0.06 TROPONIN SERIES- (INITIAL, 1 HR) Narrative: The following orders were created for panel order Troponin I Series, High Sensitivity (0, 1 HR). Procedure Abnormality Status --------- ------ Troponin I, High Sensiti...[[id number]] Normal Final result Troponin, High Sensitivi...[[id number]] Please view results for these tests on the individual orders. SERIAL TROPONIN, 1 HOUR XR chest 1 view Final Result No acute pulmonary abnormality. Signed by Adarsh Ruff MD Medical Decision Making: Patient appears well and nontoxic. No focal deficit. EKG nonischemic. High sensitive troponin negative. Hypokalemia. Replaced orally. Chest x-ray clear. Advised on keeping her appointment for her stress testing and asked to return for new or worsening symptoms. Stable at time of discharge. Differential Diagnoses Considered: Anxiety, electrolyte abnormality, pneumonia, ACS Independent Interpretation of Studies: I independently interpreted: Chest x-ray shows no evidence of pneumonia or pneumothorax. Escalation of Care: Appropriate for discharge and follow-up with primary care. Procedure ECG 12 lead Performed by: Mundo Fuentes DO Authorized by: Mundo Fuentes DO ECG interpreted by ED Physician in the absence of a keno writer/runner: yes Comments: EKG interpreted by Dr. Mundo Fuentes: Normal sinus rhythm at 62 bpm. MO interval 180 ms. QTc of [address] changes. Mundo Fuentes DO 09/07/23 0021 [facility] Work Phone: 08-30-2023 History of Present illness Narrative Subjective Patient ID: Jennifer Weir is a 88 y.o. female who presents for Follow-up (C/O NASAL CONGESTION WITH HEAD PRESSURE X 3 TO 4 WEEKS. SHE HAS BEEN FLUSHES HER SINUSES WITH SALINE EVERY MORNING AND TRACE AMOUNT OF BLOOD NOTICED. ). CO SINUS CONGESTION WAKES UP WITH LOT OF CONGESTION , NO COUGH , SOME TIMES SEES BLOOD IN THE DRAIANAGE Review of Systems Constitutional: Negative. Negative for chills and fever. HENT: Positive for postnasal drip, rhinorrhea, sinus pressure and sinus pain. Negative for congestion. Eyes: Negative. Negative for discharge. Respiratory: Negative. Negative for cough, shortness of breath and wheezing. Cardiovascular: Negative. Negative for chest pain, palpitations and leg swelling. Gastrointestinal: Negative. Negative for abdominal distention, abdominal pain, constipation, diarrhea, nausea and vomiting. Endocrine: Negative. Genitourinary: Negative. Negative for dysuria and urgency. Musculoskeletal: Negative. Negative for back pain, joint swelling and neck stiffness. Skin: Negative. Negative for rash. Allergic/Immunologic: Negative. Negative for immunocompromised state. Neurological: Negative. Negative for light-headedness, numbness and headaches. Hematological: Negative. Negative for adenopathy. Psychiatric/Behavioral: Negative. Negative for agitation, behavioral problems and confusion. All other systems reviewed and are negative. Objective Physical Exam Vitals reviewed. Constitutional: General: She is not in acute distress. Appearance: Normal appearance. HENT: Head: Normocephalic and atraumatic. Nose: Nose normal. Eyes: Conjunctiva/sclera: Conjunctivae normal. Pupils: Pupils are equal, round, and reactive to light. Neck: Vascular: No carotid bruit. Cardiovascular: Rate and Rhythm: Normal rate and regular rhythm. Pulses: Normal pulses. Heart sounds: No gallop. Pulmonary: Effort: Pulmonary effort is normal. No respiratory distress. Breath sounds: Normal breath sounds. No wheezing. Abdominal: General: Bowel sounds are normal. Palpations: Abdomen is soft. Tenderness: There is no abdominal tenderness. Musculoskeletal: General: Normal range of motion. Cervical back: Normal range of motion. No rigidity. Lymphadenopathy: Cervical: No cervical adenopathy. Skin: General: Skin is warm. Findings: No rash. Neurological: General: No focal deficit present. Mental Status: She is alert and oriented to person, place, and time. Psychiatric: Mood and Affect: Mood normal. Behavior: Behavior normal. BP 153/83 Pulse 67 Ht 1.575 m (5' 2 ) Wt 70.8 kg (156 lb) BMI 28.53 kg/m No results found for: CBCDIF , CMPLAS , PSA , LASA , HGBA1C Assessment/Plan Problem List Items Addressed This Visit None Visit Diagnoses Subacute sinusitis, unspecified location - Primary Relevant Medications amoxicillin (Amoxil) 250 mg chewable tablet fluticasone (Flonase Sensimist) 27.5 mcg/actuation nasal spray USE HUMIDIFIER MONITOR BP GOAL BP LOWER THAN 130/80 LOW SALT EXERCISE DAILY PT REPORT VERY GOOD BP AT HOME WILL WATCH PT. WAS INSTRUCTED TO INCREASE FLUID INTAKE ,TAKE TYLENOL 650 MG PO Q6H/PRN FOR PAIN OR FEVER AND TAKE ROBITUSSIN OTC 2 TSP Q 6H/PRN FOR COUGH. documented in this encounter [facility] Work Phone: 08-25-2023 Note Nsr, poor r wave pro gression, possible LVH possible old anterior mi [facility] Work Phone: 08-25-2023 History of Present illness Narrative Subjective Patient ID: Jennifer Weir is a 88 y.o. female who presents for Follow-up (NEW PT VISIT). Here to establish CO OFF AND ON NOSE BLEED IN AM CO PALPITATIONS MOST AT HS NO CP NO SOB Review of Systems Constitutional: Negative. Negative for chills and fever. HENT: Negative. Negative for congestion. Eyes: Negative. Negative for discharge. Respiratory: Negative. Negative for cough, shortness of breath and wheezing. Cardiovascular: Positive for palpitations. Negative for chest pain and leg swelling. Gastrointestinal: Negative. Negative for abdominal distention, abdominal pain, constipation, diarrhea, nausea and vomiting. Endocrine: Negative. Genitourinary: Negative. Negative for dysuria and urgency. Musculoskeletal: Negative. Negative for back pain, joint swelling and neck stiffness. Skin: Negative. Negative for rash. Allergic/Immunologic: Negative. Negative for immunocompromised state. Neurological: Negative. Negative for light-headedness, numbness and headaches. Hematological: Negative. Negative for adenopathy. Psychiatric/Behavioral: Negative. Negative for agitation, behavioral problems and confusion. All other systems reviewed and are negative. Objective Physical Exam Vitals reviewed. Constitutional: General: She is not in acute distress. Appearance: Normal appearance. HENT: Head: Normocephalic and atraumatic. Nose: Nose normal. Eyes: Conjunctiva/sclera: Conjunctivae normal. Pupils: Pupils are equal, round, and reactive to light. Neck: Vascular: No carotid bruit. Cardiovascular: Rate and Rhythm: Normal rate and regular rhythm. Pulses: Normal pulses. Heart sounds: No gallop. Pulmonary: Effort: Pulmonary effort is normal. No respiratory distress. Breath sounds: Normal breath sounds. No wheezing. Abdominal: General: Bowel sounds are normal. Palpations: Abdomen is soft. Tenderness: There is no abdominal tenderness. Musculoskeletal: General: Normal range of motion. Cervical back: Normal range of motion. No rigidity. Lymphadenopathy: Cervical: No cervical adenopathy. Skin: General: Skin is warm. Findings: No rash. Neurological: General: No focal deficit present. Mental Status: She is alert and oriented to person, place, and time. Psychiatric: Mood and Affect: Mood normal. Behavior: Behavior normal. BP 127/80 (BP Location: Right arm, Patient Position: Sitting) Pulse 67 Ht 1.575 m (5' 2 ) Wt 71.2 kg (157 lb) BMI 28.72 kg/m No results found for: CBCDIF , CMPLAS , PSA , LASA , HGBA1C Assessment/Plan Problem List Items Addressed This Visit GERD (gastroesophageal reflux disease) Relevant Orders CBC and Auto Differential Comprehensive Metabolic Panel XR chest 2 views Hyperlipidemia - Primary Relevant Orders CBC and Auto Differential Comprehensive Metabolic Panel Lipid Panel XR chest 2 views Other Visit Diagnoses Palpitations Relevant Orders ECG 12 Lead (Completed) CBC and Auto Differential Comprehensive Metabolic Panel TSH with reflex to Free T4 if abnormal XR chest 2 views 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 documented in this encounter [facility] Work Phone: 11-02-2022 Instructions Jennifer Hernandez, OD - 11/02/2022 2:35 PM EST ASSESSMENT/PLAN: 1. 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 All testing appears normal at this time. 2. Floaters, bilateral - ICD9: 379.24, ICD10: H43.393 3. Posterior vitreous detachment of left eye - ICD9: 379.21, ICD10: H43.812 Vitreal floaters stable both eyes. Retinas flat and intact with no apparent retinal tear or traction. Discussed symptoms of retinal tear/detachment and if seen patient will return to clinic without delay. 4. Hyperopia, right - ICD9: 367.0, ICD10: H52.01 5. Myopia, left - ICD9: 367.1, ICD10: H52.12 6. 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 7. Pseudophakia - ICD9: V43.1, ICD10: Z96.1 Posterior chamber intraocular lenses are well positioned and clear. Recommended yearly exams. documented in this encounter [facility] 11-02-2022 History of Present illness Narrative ASSESSMENT/PLAN: 1. 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 All testing appears normal at this time. 2. Floaters, bilateral - ICD9: 379.24, ICD10: H43.393 3. Posterior vitreous detachment of left eye - ICD9: 379.21, ICD10: H43.812 Vitreal floaters stable both eyes. Retinas flat and intact with no apparent retinal tear or traction. Discussed symptoms of retinal tear/detachment and if seen patient will return to clinic without delay. 4. Hyperopia, right - ICD9: 367.0, ICD10: H52.01 5. Myopia, left - ICD9: 367.1, ICD10: H52.12 6. 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 7. Pseudophakia - ICD9: V43.1, ICD10: Z96.1 Posterior chamber intraocular lenses are well positioned and clear. Recommended yearly exams. Jennifer Hernandez, OD I have confirmed and edited as necessary the relevant ophthalmic history, ROS, and the neuro exam findings as obtained by others. documented in this encounter [facility] 07-09-2022 History of Present illness Narrative Jennifer Weir 1935 CC: 86 y.o. is a she with bilateral knee pain Chief Complaint Patient presents with Left Knee - Pain Right Knee - Pain . HPI: Knee Pain: Patient presents to the office today for bilateral knee pain but she really doesn't have pain. She has some discomfort in the knees but only at night. She states that there is some uncomfortable pressure when the knees rest on top of each other. 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 She had imaging performed of both knees recently and was told that she needed to have her left knee replaced but her prior surgeon had just retired so she was referred to Dr. Ramesh by Dr. Martinez whom her and her see for his back. She denies any pain in the knee with ambulation. She denies any instability of the knee. She takes tylenol not for the knees but for her back. She states that the left knee feels nothing like the right one did when it needed replaced. She is still able to do everything she wants and needs to do. PMH: Allergies Allergen Reactions Adhesive Tape-Silicones Unknown Azithromycin Other (See Comments) Dizziness, shakes Nitrofurantoin Monohyd/M-Cryst Other (See Comments) Current Outpatient Medications: aspirin 81 mg chewable tablet, Chew and Swallow 81 mg daily ., Disp: , Rfl: busPIRone (BUSPAR) 7.5 MG tablet, , Disp: , Rfl: calcium carbonate-vitamin D3 500 mg-10 mcg (400 unit) Tab, Take 1 tablet by mouth daily ., Disp: , Rfl: escitalopram oxalate (LEXAPRO) 5 MG tablet, Take 5 mg by mouth daily ., Disp: , Rfl: fluticasone propionate (FLONASE) 50 mcg/actuation nasal spray, , Disp: , Rfl: omeprazole (PRILOSEC) 20 MG capsule, Take 20 mg by mouth daily ., Disp: , Rfl: Past Medical History: Diagnosis Date Bunion Cataracts, bilateral Hypercholesteremia Mahajan's metatarsalgia Past Surgical History: Procedure Laterality Date BREAST BIOPSY CATARACT EXTRACTION, BILATERAL CHOLECYSTECTOMY HYSTERECTOMY (CERVIX REMAINS) KNEE SURGERY Social History Socioeconomic History Marital status: Tobacco Use Smoking status: Never Smokeless tobacco: Never Vaping Use Vaping Use: Never used Substance and Sexual Activity Alcohol use: Not Currently Drug use: Never The patient's past medical history, surgical history, social history, family history, medications and allergies were reviewed with the patient today and are available in the chart for further review. ROS: Review of Systems Constitutional: Negative for activity change and fatigue. HENT: Negative for congestion, hearing loss and trouble swallowing. Eyes: Negative for visual disturbance. Respiratory: Negative for chest tightness and shortness of breath. Cardiovascular: Negative for chest pain and palpitations. Gastrointestinal: Negative for abdominal pain, diarrhea, nausea and vomiting. Endocrine: Negative for polydipsia, polyphagia and polyuria. Genitourinary: Negative for decreased urine volume, difficulty urinating and hematuria. Musculoskeletal: Positive for arthralgias. Negative for gait problem, joint swelling and myalgias. Skin: Negative for color change, rash and wound. Allergic/Immunologic: Negative for immunocompromised state. Neurological: Negative for dizziness, weakness, light-headedness and numbness. Hematological: Does not bruise/bleed easily. Psychiatric/Behavioral: Negative for confusion and sleep disturbance. The patient is not nervous/anxious. PE: Physical Exam Constitutional: Appearance: She is well-developed. HENT: Head: Normocephalic. Eyes: Pupils: Pupils are equal, round, and reactive to light. Cardiovascular: Rate and Rhythm: Normal rate and regular rhythm. Pulmonary: Effort: Pulmonary effort is normal. Breath sounds: Normal breath sounds. Abdominal: General: Bowel sounds are normal. Palpations: Abdomen is soft. Musculoskeletal: General: Tenderness present. Normal range of motion. Cervical back: Normal range of motion and neck supple. Right knee: No effusion. Left knee: No effusion. Instability Tests: Medial Galina test negative and lateral Galina test negative. Skin: General: Skin is warm and dry. Neurological: Mental Status: She is alert and oriented to person, place, and time. ORTHO: Right Knee Exam Tenderness The patient is experiencing no tenderness. Range of Motion Extension: normal Flexion: 130 Tests Varus: negative Valgus: negative Drawer: Anterior - negative Posterior - negative Other Erythema: absent Scars: present Sensation: normal Pulse: present Swelling: none Effusion: no effusion present Left Knee Exam Tenderness The patient is experiencing tenderness in the medial retinaculum. Range of Motion Extension: normal Flexion: 140 Tests Galina: Medial - negative Lateral - negative Varus: negative Valgus: negative Drawer: Anterior - negative Posterior - negative Other Erythema: absent Scars: absent Sensation: normal Pulse: present Swelling: none Effusion: no effusion present Imaging: B/L Knees show right medial knee partial knee replacement in good position without evidence of loosening. There is moderate narrowing and degeneration in the lateral compartment of the right knee. The left knee has moderate to severe tricompartmental degenerative changes with chondrocalcinosis. Assessment/Plan: After examination and reviewing of the patient x-ray images, we discussed treatment options for the knees. I did explain that if she doesn't have severe pain and is still able to do everything she wants and needs to do, she doesn't need the knee replaced. We did discuss adding some ibuprofen just at bedtime to see if this will help with more pain relief. We also discuss cortisone injections in the future if the pain starts to worsen. I will see this coral lady back as needed. She verbalizes understanding and is in agreement with the treatment plan. Diagnosis: Problem List Items Addressed This Visit None Follow Up: No follow-ups on file. Jack Jansen CNP documented in this encounter [facility] 03-04-2022 History of Present illness Narrative Left medial ankle pain Patient is a pleasant 86-year-old female following up today with medial left ankle pain. She states that the NSAIDs were helpful while she took them however the pain is back and really no better than last month. She still states that it feels quite sore when she is trying to especially be helping her as he rehabs. Physical Vascular: PT pulses are intact. CFT is fair no edema. Derm: No erythema no open wounds no rashes noted nodules. No pain to the calf with compression palpation. Neuro: Light touch is normal Babinski's is normal. Musculoskeletal: Muscle strength is 5/5 with fair tone. Can easily wiggle toes without any clicking or catching. Ankle subtalar is full and pain-free. Does have pain with forced isolation of posterior tibial tendon and direct palpation of posterior tibial tendon. 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 Today did uptitrate care adding immobilization. This is to keep the PT tendon immobilized and heel therefore did prescribe dispense and fit her with a cam boot which is medically necessary. Patient was ambulatory prior to this incident and is expected to regain ambulatory status after complete healing of injury. Additionally can work Tubigrip during the day and off at nighttime. Low medical complexity decision making based on up titration of care. Follow-up in 1 month reevaluate and hopefully down titrate cam boot. documented in this encounter [facility] 01-21-2022 History of Present illness Narrative HPI Chief Complaint Patient presents with Ankle Problem L ankle pain and swelling x 3 wks - no trauma or injury - pt states that the ankle has been swollen and purple - pt went to pcp but has not had any xrays on the ankle Patient is a pleasant 86-year-old female is in today with a swollen left ankle. Patient states that her ankles been puffy boggy and now for about a month. She noticed some bruising but does not recall any injury. States that still feeling sore and really not improved much. Denies trauma that she can recall. Past Medical History: Diagnosis Date Bunion Cataracts, bilateral Hypercholesteremia Mahajan's metatarsalgia Past Surgical History: Procedure Laterality Date BREAST BIOPSY CATARACT EXTRACTION, BILATERAL CHOLECYSTECTOMY HYSTERECTOMY (CERVIX REMAINS) KNEE SURGERY Social History Socioeconomic History Marital status: Tobacco Use Smoking status: Never Smoker Smokeless tobacco: Never Used Vaping Use Vaping Use: Never used Substance and Sexual Activity Alcohol use: Not Currently Drug use: Never Review of Systems Constitutional: Negative for chills and fever. Respiratory: Negative for chest tightness and shortness of breath. Cardiovascular: Negative for chest pain, palpitations and leg swelling. Gastrointestinal: Negative for diarrhea, nausea and vomiting. Musculoskeletal: Positive for gait problem and joint swelling. Physical Exam -Patient is AOx3. Linear and appropriate humor and thought process. Vascular DP PT pulses are palpable 1 out of 4. +2 pitting edema to the foot and ankle left worse than right. No calf pain or tenderness. The calf is soft and supple. Neuro: Light touch is normal Babinski's is normal. Musculoskeletal: Does have pain across the posterior tibial tendon and insertional into the left midfoot. Ankle and subtalar is full and pain-free without any clicking or catching. Easily wiggle toes. X-rays AP oblique lateral: Some osteopenia present otherwise no obvious fractures no dislocations no subluxations. Some posterior just lost the subtalar joint and ankle. Impression/Plan Problem List Items Addressed This Visit None Visit Diagnoses Ankle swelling, left - Primary Relevant Orders XR Ankle Left 3+ Views (Standard) Patient is a pleasant 86-year-old female with posterior tibial tenderness and left ankle pain and swelling. -Can start compression therapy with Tubigrip. -We will add 10 days of NSAIDs including meloxicam, 7.5 mg a day 10 tabs 10 days 0 refills weight against her ASA 81 Rest and ice and follow-up in 1 month to reevaluate. Okay to take Tubigrip off during. Low medical complexity decision making. documented in this encounter [facility] 04-04-2021 Note HNO ID: [id number] Author: David Felix MD Service: ? Author Type: Physician Type: Progress Notes Filed: 04/04/2021 2:29 PM Note Text: ASSESSMENT/PLAN: 1. 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 Paresh Hernandez. See her in 3 months for intraocular pressure check and visual field. 2. Pseudophakia of both eyes - ICD9: V43.1, ICD10: Z96.1 Intraocular lens implant in good position Both Eyes. 3. Essential hypertension - ICD9: 401.9, ICD10: I10 Continue to monitor with primary care physician. 4. Anxiety - ICD9: 300.00, ICD10: F41.9 Continue to monitor with primary care physician. David Felix MD I have confirmed and edited as necessary the relevant ophthalmic history, review of systems, surgical history, and ophthalmological examination findings as obtained by the ophthalmic technical staff. I have seen and examined Jennifer Weir. I have discussed the examination findings, diagnosis, and treatment options with Jennifer Weir and/or her family. I have also reviewed and agree with the assessment and plan as stated above and agree with all its relevant components. I gave the patient the opportunity to ask questions about the findings, diagnosis, and treatment options. [facility] Diagnosis Posterior tibial tendonitis, left- Primary [facility] Diagnosis Primary osteoarthritis of both knees- Primary [facility] Diagnosis Ocular hypertension of right eye- Primary Borderline glaucoma with ocular hypertension Floaters, bilateral Posterior vitreous detachment of left eye Vitreous degeneration Hyperopia, right Myopia, left Regular astigmatism, bilateral Pseudophakia Lens replaced by other means documented in this encounter [facility] note* Diagnosis Hyperlipidemia, unspecified hyperlipidemia type- Primary Gastroesophageal reflux disease, unspecified whether esophagitis present Palpitations Abnormal EKG Nonspecific abnormal electrocardiogram (ECG) (EKG) documented in this encounter [facility] Work Phone: Evaluation note* Diagnosis Subacute sinusitis, unspecified location- Primary documented in this encounter [facility] Work Phone: Evaluation note* Diagnosis Dizziness- Primary Dizziness and giddiness Hypokalemia Hypopotassemia documented in this encounter [facility] Work Phone: Evaluation note* Diagnosis Nose irritation- Primary Other diseases of nasal cavity and sinuses documented in this encounter [facility] Work Phone: Evaluation note* Diagnosis Palpitations Abnormal EKG Nonspecific abnormal electrocardiogram (ECG) (EKG) documented in this encounter [facility] Work Phone: Evaluation note* Diagnosis Palpitations documented in this encounter [facility] Work Phone: Evaluation note* Diagnosis Palpitations Abnormal EKG Nonspecific abnormal electrocardiogram (ECG) (EKG) documented in this encounter [facility] Work Phone: Evaluation note* Diagnosis Yeast infection- Primary Dysuria documented in this encounter [facility] Work Phone: Reason for referral (narrative)* Consultation (Routine) - Authorized Specialty Diagnoses / Procedures Referred By Contac t Referred To Contact Family Medicine / Primary Care Mundo Fuentes DO [address] [facility] Department [place] [address] Referral ID Status Reason Start Date Expiration Date Visits Requested Visits Authorized [id number] Authorized Specialty Services Required 09/06/2024 1 1 [facility] Work Phone: Summary Purpose Family History No Family History Records FoundNo Family History Records FoundNo Family History Records FoundNo Family History Records FoundNo Family History Records FoundNo Family History Records FoundNo Family History Records FoundNo Family History Records FoundNo Family History Records FoundNo Family History Records FoundNo Family History Records Found Advance Directives No Advanced Directives Records FoundDocuments on File Type Date Recorded 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 Advance Directives and Living Will Medications Administered Section Inactive Administered Medications - up to 3 most recent administrations Medication Order MAR Action Action Date Dose Rate Site tropicamide 1 % 1 Drop (MYDRIACYL) 1 Drop, BOTH EYES, ONCE, 1 dose, On 11/02/22 at 1430, FOR THE EYE Given 11/02/2022 2:30 PM EST 1 Drop Reason for Referral Specialty Diagnoses / Procedures Referred By Justyna rudolph Referred To Contact Diagnoses Palpitations Abnormal EKG Procedures Nuclear Stress Test Shanelle Ho MD [address] [place] [address] Referral ID Status Reason Start Date Expiration Date V isits Requested Visits Authorized [id number] Pending Review 08/25/2023 08/24/2024 5 5 Specialty Diagnoses / Procedures Referred By Justyna rudolph Referred To Contact Cardiology Diagnoses Palpitations Abnormal EKG Procedures Transthoracic Echo (TTE) Complete MO ECHO TRANSTHORC R-T 2D W/WO M-MODE REC F-UP/LMTD MO DOP ECHOCARD COLOR FLOW VELOCITY MAPPING MO DOP ECHOCARD PULSE WAVE W/SPECTRAL F-UP/LMTD STD Shanelle Ho MD [address] [place] [address] Referral ID Status Reason Start Date Expiration Date Visits Requested Visits Authorized [id number] Pending Review Perform Procedure 3 08/24/2024 1 1 Specialty Diagnoses / Procedures Referred By Contac t Referred To Contact Cardiology Diagnoses Palpitations 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 Shanelle Ho MD [address] [place] [place] [address] Referral ID Status Reason Start Date Expiration Date V isits Requested Visits Authorized [id number] Pending Review 08/25/2023 08/24/2024 1 1 Specialty Diagnoses / Procedures Referred By Contac t Referred To Contact Radiology Diagnoses Hyperlipidemia, unspecified hyperlipidemia type Gastroesophageal reflux disease, unspecified whether esophagitis present Palpitations Abnormal EKG Procedures XR chest 2 views Shanelle Ho MD [address] [place] [place] [address] Referral ID Status Reason Start Date Expiration Date Visits Requested Visits Authorized [id number] Authorized Perform Procedure 3 08/24/2024 1 1 Specialty Diagnoses / Procedures Referred By Contac t Referred To Contact Diagnoses Palpitations Procedures ECG 12 Lead Shanelle Ho MD [address] [place] [place] [address] Referral ID Status Reason Start Date Expiration Date V isits Requested Visits Authorized [id number] Pending Review 08/25/2023 08/24/2024 1 1 Specialty Diagnoses / Procedures Referred By Contac t Referred To Contact Cardiology Diagnoses Palpitations Abnormal EKG Procedures Transthoracic Echo (TTE) Complete MO ECHO TRANSTHORC R-T 2D W/WO M-MODE REC F-UP/LMTD MO DOP ECHOCARD COLOR FLOW VELOCITY MAPPING MO DOP ECHOCARD PULSE WAVE W/SPECTRAL F-UP/LMTD STD Shanelle Ho MD [address] [place] [address] [facility] [address] [address] Referral ID Status Reason Start Date Expiration Date Visits Requested Visits Authorized [id number] Authorized Perform Procedure 08/24/2024 1 1 Additional Source Comments INFORMATION SOURCE (unrecogn ized section and content) DATE CREATED AUTHOR AUTHOR'S ORGANIZ ATION 04/04/2019 [facility] DATE CREATED AUTHOR AUTHOR'S ORGANIZ ATION 12/01/2021 [facility] DATE CREATED AUTHOR AUTHOR'S ORGANIZ ATION 07/11/2022 [facility] DATE CREATED AUTHOR AUTHOR'S ORGANIZ ATION 07/13/2022 [facility] DATE CREATED AUTHOR AUTHOR'S ORGANIZ ATION 03/21/2023 [facility] DATE CREATED AUTHOR AUTHOR'S ORGANIZ ATION 04/03/2023 [facility] DATE CREATED AUTHOR AUTHOR'S ORGANIZ ATION 05/12/2023 [facility] DATE CREATED AUTHOR AUTHOR'S ORGANIZ ATION 09/23/2023 [facility] DATE CREATED AUTHOR AUTHOR'S ORGANIZ ATION 11/26/2023 [facility] DATE CREATED AUTHOR AUTHOR'S ORGANIZ ATION 12/09/2023 [facility] Reason for Visit (unrecogniz ed section and content) Reason Comments Ankle Pain Follow up left ankle . She has been taking care of her after back surgery. Ankle is not doing well. Reason Comments Pain Reason Comments Ocular Hypertension Evaluation Reason Comments Follow-up NEW PT VISIT Specialty Diagnoses / Procedures Referred By Justyna t Referred To Contact Diagnoses Palpitations Procedures ECG 12 Lead Shanelle Ho MD [address] [place] [address] Referral ID Status Reason Start Date Expiration Date V isits Requested Visits Authorized [id number] Pending Review 08/25/2023 08/24/2024 1 1 Reason Comments Follow-up C/O NASAL CONGESTION WITH HEAD PRESSURE X 3 TO 4 WEEKS. SHE HAS BEEN FLUSHES HER SINUSES WITH SALINE EVERY MORNING AND TRACE AMOUNT OF BLOOD NOTICED. Reason Comments Hypertension Pt states she is sup pose to go to get a stress test and feel she was anxious and not feeling right. Reason Comments Epistaxis (Nose Bleed) EVERY MORNING X 4 WEEKS AGO Specialty Diagnoses / Procedures Referred By Contac t Referred To Contact Cardiology Diagnoses Palpitations Abnormal EKG Procedures Transthoracic Echo (TTE) Complete MO ECHO TRANSTHORC R-T 2D W/WO M-MODE REC F-UP/LMTD MO DOP ECHOCARD COLOR FLOW VELOCITY MAPPING MO DOP ECHOCARD PULSE WAVE W/SPECTRAL F-UP/LMTD STD Shanelle Ho MD [address] [place] [place] [address] [facility] [address] [facility] 1st [place] [address] Referral ID Status Reason Start Date Expiration Date Visits Requested Visits Authorized [id number] Authorized Perform Procedure 08/24/2024 1 1 Specialty Diagnoses / Procedures Referred By Justyna t Referred To Contact Cardiology Diagnoses Palpitations 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 Shanelle Ho MD [address] [address] Referral ID Status Reason Start Date Expiration Date V isits Requested Visits Authorized [id number] Pending Review 08/25/2023 08/24/2024 1 1 Reason Comments UTI FREQUENT URINATION A ND BURNING WHILE URINATING X A FEW WEEKS Care Teams (unrecognized sec tion and content) Medical Transcription Supervisor Relationship Specialty Start Date End Date Aruna Barreto MD [address] [place] [address] PCP - General Family Medicine 01/21/22 Medical Transcription Supervisor Relationship Specialty Start Date End Date Aruna Barreto PCP - General Family Medicine 11/25/12 Medical Transcription Supervisor Relationship Specialty Start Date End Date Aruna Barreto MD [address] [place] [address] PCP - General 10/11/19 Medical Transcription Supervisor Relationship Specialty Start Date End Date Aruna Barreto MD [address] [place], [place] [id number] PCP - General 10/11/19 Medical Transcription Supervisor Relationship Specialty Start Date End Date Shanelle Ho MD [address] [place] [id number] PCP - General Internal Medicine 08/30/23 Medical Transcription Supervisor Relationship Specialty Start Date End Date Shanelle Ho MD [address] [place] [id number] PCP - General Internal Medicine 08/30/23 Medical Transcription Supervisor Relationship Specialty Start Date End Date Shanelle Ho MD [address] [place] [id number] PCP - General Internal Medicine 08/30/23 Medical Transcription Supervisor Relationship Specialty Start Date End Date Shanelle Ho MD [address] [place] [id number] PCP - General Internal Medicine 08/30/23 Medical Transcription Supervisor Relationship Specialty Start Date End Date Shanelle Ho MD [address] [place] [id number] PCP - General Internal Medicine 08/30/23 Source Comments (unrecognize d section and content) In the event this informatio n is protected by the Federal Confidentiality of Alcohol and Drug Abuse Patient Records regulations: The Federal rules restrict any use of the information to criminally investigate or prosecute any alcohol or drug abuse patient.[facility] <item> Privacy Markings (unrecogniz ed section and content) Section Author: Ofe Lawler PROHIBITION ON REDISCLOSURE OF CONFIDENTIAL INFORMATION This notice accompanies a disclosure of information concerning a client made to you with the consent of such client. Scheduled Active and Recently Administ ered Medications (unrecognized section and content) FOR RECORDS PERTAINING TO PATIENTS WHO ARE OR HAVE BEEN ENROLLED IN A CHEMICAL DEPENDENCY/SUBSTANCEABUSE PROGRAM, SOME INFORMATION MAY BE OMITTED. This clinical summary was aggregated from multiple sources. Caution should be exercised in using it in the provision of clinical care. This summary normalizes information from multiple sources, and as a consequence, information in this document may materially change the coding, format and clinical context of patient data. In addition, data may be omitted in some cases. CLINICAL DECISIONS SHOULD BE BASED ON THE PRIMARY CLINICAL RECORDS. [employer] [facility]. provides no warranty or guarantee of the accuracy or completeness of information in this document.
== END | disposition home or self-care (01) ==
LOC: LABSPEC 16:09
PROVIDERS: PCP Family Medicine; Referring Provider Urology; Visit Provider Urology
DX: R30.0 Dysuria (principal)
CPT/HCPCS: 87086; 87088

== ENCOUNTER → 2024-02-08 | Outpatient (CLI) | payer MEDICARE, SELFPAY ==
[2024-02-08 13:56] LABS: Absolute Lymphocyte Count 3.04 X10^3/uL (0.83-4.51); Absolute Neutrophil Count 3.7 X10^3/uL (2.0-7.7); Basophil# 0.06 X10^3/uL; Basophil% 0.8 % (0-1); Eosinophils% 1.3 % (0-5); Hematocrit 38.9 % (37-47); Hemoglobin 12.3 g/dL (12.0-15.0); Lymphocyte # 3.04 X10^3/ul (0.83-4.51); Lymphocyte % 40.9 % (19-41); Mean Corp Hgb Conc 31.6 g/dL (32-36); Mean Corpuscular Volume 91.7 fL (81-99); Mean Platelet Vol. 9.4 fl (6.2-12.0); Monocyte# 0.57 X10^3/uL; Monocyte% 7.7 % (0-10); NRBC Flagged by Analyzer 0 % (0-5); Neutrophil # 3.65 X10^3/uL (2.7-7.7); Platelet Count 228 K/mm3 (150-450); RBC Distribution Width CV 12.8 % (11.6-14.6); RBC Distribution Width SD 42.5 fl (35.1-43.9); Red Blood Count 4.24 M/mm3 (4.2-5.4); White Blood Count 7.4 K/mm3 (4.4-11.0)
[2024-02-08 14:10] LABS: ALB/GLOB Ratio 1.1 RATIO (0.9-2.4); AST(SGOT) 23 U/L (15-37); Alanine Aminotransfer ALT/SGPT 20 U/L (13-56); Albumin, Serum 3.7 g/dL (3.2-5.0); Alkaline Phosphatase 78 U/L (45-117); Anion Gap 4 (5-15); BUN 15 mg/dL (7-18); BUN/Creat Ratio 12.4 RATIO (10-20); Calcium,Total 9.2 mg/dL (8.5-10.1); Chloride 108 mmol/L (98-107); Creatinine, Serum 1.21 mg/dL (0.55-1.02); EST Glomerular Filtration Rate 45 mL/min (>60); Est Glom Filt Rate - Afr Amer 54 mL/min (>60); Globulin 3.3 g/dL (2.2-4.2); Glucose 113 mg/dL (74-106); Potassium 4.2 mmol/L (3.5-5.1); Sodium Level 141 mmol/L (136-145)
== END | disposition home or self-care (01) ==
PROVIDERS: Referring Provider Nurse Practitioner Women's Health; Visit Provider Nurse Practitioner Women's Health
DX: N39.0 Urinary tract infection, site not specified (principal)
CPT/HCPCS: 36415; 80053; 85025; 87086; 87088

== ENCOUNTER → 2024-06-19 | Outpatient (CLI) | payer MEDICARE, SELFPAY ==
--- NOTE | 2024-06-19 14:19 | BI_ITS ---
MAMMOGRAPHY - BILATERAL DIAGNOSTIC REASON FOR EXAM: Female, 88 years old. PAIN PERTINENT HISTORY: Non-contributory. TECHNIQUE: Digital examination. Mediolateral oblique (MLO) and craniocaudad (CC) views of both breasts were obtained. CAD: CAD was performed on this study. COMPARISON: 03/13/2021 FINDINGS: Breast Composition: There are scattered areas of fibroglandular density. There are no dominant masses or suspicious calcifications. No other significant abnormalities are identified. BI/DIAG MAMM W/CAD, BILAT IMPRESSION: Stable bilateral diagnostic mammogram. ASSESSMENT CATEGORY: BIRADS Category 1: Negative. A letter regarding these results will be sent to the patient by the facility within 30 days. FOLLOW UP RECOMMENDATION: Yearly follow up mammogram recommended. (A) Approximately 10% of breast cancers are not detected by mammography. A normal mammogram should not delay biopsy of a clinically suspicious abnormality. Electronically Signed: Roman Mcgraw MD at 14:58 EDT ,
== END | disposition home or self-care (01) ==
PROVIDERS: PCP Nurse Practitioner Family; Referring Provider Nurse Practitioner Family; Visit Provider Nurse Practitioner Family
DX: N64.4 Mastodynia (principal)
CPT/HCPCS: 77062; 77066; G0279

== ENCOUNTER → 2025-06-21 | Outpatient (CLI) | payer MEDICARE, SELFPAY ==
--- NOTE | 2025-06-21 11:00 | BI_ITS ---
EXAM: SCRN MAMM (CAD)W/INGRID BILAT DATE: 06/21/2025 CLINICAL HISTORY: F, Age 89 y/o , SCREENING No family history. TECHNIQUE: Procedure Code: [id number] Modality: MG Procedure: SCRN MAMM (CAD)W/INGRID BILAT COMPARISON: Prior exam(s) dated June 19, 2024.. FINDINGS: TISSUE DENSITY: There are scattered areas of fibroglandular density. Bilateral Breast Mammographic Findings: No significant masses, calcifications or other abnormalities are identified. 5 mm fat containing nodule seen in the upper lateral aspect of the left breast most likely representing a small intramammary lymph node. This is unchanged. No suspicious masses, areas of developing architectural distortion, or suspicious calcifications. There has been no significant interval change. BI/SCRN MAMM (CAD)W/INGRID BILAT IMPRESSION: Stable bilateral screening mammogram. OVERALL FINAL ASSESSMENT BI-RADS 2: BENIGN RECOMMENDATION: Routine annual follow-up in 1 Year A letter with findings and recommendations will be mailed to the patient. Reading Location: [facility]
== END | disposition home or self-care (01) ==
LOC: OPBI 10:52
PROVIDERS: PCP Nurse Practitioner Family; Referring Provider Nurse Practitioner Women's Health; Visit Provider Nurse Practitioner Women's Health
DX: Z12.31 Encounter for screening mammogram for malignant neoplasm of breast (principal)
CPT/HCPCS: 77063; 77067